=== PATIENT | male | born 1960 | race Caucasian/White ===

== ENCOUNTER 2017-02-28 14:48 | Emergency (ER) | payer BC ==
[2017-02-28 15:24] LABS: Hematocrit 46.4 % (42.0-52.0); Hemoglobin 16.6 gm/dL (13.5-18.0); Mean Cell Volume 91.9 fl (78-100); Mean Corpuscular Hemoglobin 32.9 pg (27-31); Mean Corpuscular Hgb Conc 35.8 g/dl (32-36); Mean Platelet Volume 10.3 fl (6.0-9.5); Neutrophil % 64.4 % (42-75.0); Platelet Count 200 K/mm3 (150-450); Red Blood Count 5.05 M/mm3 (4.7-6.0); Red Cell Distribution Width 12.1 % (11.5-14.0); White Blood Count 6.3 K/mm3 (4.0-10.5)
[2017-02-28] MEDS ORDERED: NORMAL SALINE 1,000 ML IV ONE ×2 (15:24→15:34)
[2017-02-28 15:33] LABS: Albumin * 3.7 gm/dl (3.4-5.0); Anion Gap 11.8 mmol/L (6.8-13.8); BUN/Creatinine Ratio 20.2 (9.0-21.6); Bilirubin, Total 0.7 mg/dL (0.0-1.1); Calcium * 9.1 mg/dL (7.9-10.9); Carbon Dioxide 28.4 mmol/L (24-32.6); Potassium 4.2 mmol/L (3.4-4.6); Total Protein 8.3 gm/dL (6.2-8.2)
--- NOTE | 2017-02-28 15:41 | ERNOTE ---
Medical Problem HPI - Narrative Date of Service: 02/28/17 - General Chief Complaint: General Assessment Time Seen by Provider: 02/28/17 15:29 Source: patient Exam Limitations: no limitations - Immun/Allergies/Home Medications Allergies/Adverse Reactions: Allergies No Known Allergies Allergy (Verified 02/28/17 14:55) Home Medications: HOME MEDICATIONS ALPRAZolam [Xanax] 0.25 mg PO TID PRN 02/28/17 [Last Taken Unknown] Cyclobenzaprine HCl [Flexeril] 10 mg PO TID PRN 02/28/17 [Last Taken Unknown] Levothyroxine Sodium [Tirosint] 75 mcg PO DAILY 02/28/17 [Last Taken Unknown] traMADol HCL [Ultram] 50 mg PO QID PRN 02/28/17 [Last Taken Unknown] - History of Present History Narrative: 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 States he came home early on Wednesday and vomited. Has been in bed all weekend feeling ill. Date (Duration): 02/26/17 Timing: constant Severity: moderate Modifying Factors - (Improves): Present: rest Modifying Factors - (Worsens): Present: other - being outside Review of Systems - Narrative Narrative: Patient states he has been dehydrated in the past and believes that is his case right now. Has been drinking fluids but states he has only gone to the bathroom a handful of times this weekend. Denies any pain with minimal nausea since Wednesday. - Review of Systems Constitutional: Present: other - Describes as general feelings of weakness EYE: Present: no symptoms reported ENT: Present: no symptoms reported Respiratory: Present: no symptoms reported Cardiology: Present: no symptoms reported Gastrointestinal/Abdominal: Present: nausea Genitourinary: Present: decreased urinary output Skin: Present: no symptoms reported Neurological: Present: other - generalized weakness Endocrine: Present: other - Had excessive sweating due to working out in the heat Hematologic/Lymphatic: Present: no symptoms reported - Patient's Past Medical History Patient History - Medical: Hypothyroidism Patient History - Cardiac/Respiratory: No pertinent hx Patient History - Cancer: No Hx of Cancer Patient History - Surgical Procedures: Appendectomy, Hernia Repair - Social History Living Situations: spouse Abuse History: Hx of Substance Use Psych History: No pertinent hx Does anyone smoke in the home?: No Smoking Status: Former smoker - Immunizations Immunizations Up to Date: No Hx Pneumococcal Vaccination: No History of Influenza Vaccine: No Physical Exam - Physical Exam General Appearance: Present: alert, no apparent distress Head Exam: Present: normal inspection, no evidence of injury Eye Exam: Normal inspection: bilateral, PERRL: bilateral, EOMI: bilateral Ears, Nose, Throat: Present: normal ENT inspection, normal pharynx, dry mucous membranes Neck: Present: normal inspection, nontender, supple, full range of motion Respiratory: Present: no respiratory distress, normal breath sounds, no accessory muscle use, chest nontender, lungs clear Cardiovascular/Chest: Present: regular rate, rhythm, no murmur, normal peripheral pulses, tachycardia Peripheral Pulses: N=norm/S=strong/W=weak/B=bound/A=absent: Radial (R): Normal, Radial (L): Normal Gastrointestinal/Abdominal: Present: normal bowel sounds, nontender, nondistended, soft, no organomegaly Back Exam: Present: no vertebral tenderness Extremity Exam: Present: normal inspection, non-tender, normal range of motion, no edema Neurological Exam: Present: alert, oriented, normal mood/affect, no motor/ sensory deficits Skin Exam: Present: normal color, warm/dry Lymphatic Exam: Present: no adenopathy ED Progress - Results and Orders Patient's Lab Results:: I have reviewed the patient's lab results. - Vital Signs Patient's Vital Signs:: I have reviewed the patient's vital signs. Vital Signs: Vital Signs 02/28/17 14:51 Temperature 36.2 C L Pulse Rate 105 H Respiratory 14 Rate Blood Pressure 171/131 O2 Sat by Pulse 97 Oximetry - Progress/Reassessment Chief Complaint: General Assessment Progress:: Re-examined Progress Note-Subjective: 02/28/17 16:43 HR improved. States he feels much better. Departure - Departure Clinical Impression: Dehydration, mild Disposition: Home Follow Up Needed Condition: Stable Instructions: Dehydration, Adult, [id number] Additional Instructions: Very important to drink plenty of water and takes breaks from the heat. I would also like for you to follow up with your family provider and have your liver enzymes rechecked. If you have any other questions let us know. Referrals: Shea Olivares MD [Primary Care Provider] -
[2017-02-28] MEDS ORDERED: CLONIDINE HCL 0.1 MG TABLET PO ONE (16:59)
[2017-02-28] MEDS ORDERED: CLONIDINE HCL 0.1 MG TABLET ONE (17:00)
[2017-02-28 17:35] VITALS: BP 155/113
== END 2017-02-28 17:37 | disposition home or self-care (01) ==
LOC: ER 14:48
DX: E86.0 Dehydration (principal); E03.9 Hypothyroidism, unspecified